=== PATIENT | male | born 1935 | race Caucasian/White ===

== ENCOUNTER 2016-11-25 08:13 | Day surgery (SDC) | payer MEDICARE ==
[~2016-11-25 08:13] MED LIST: CEFAZOLIN 1 GM/D5W RTU 1 GM/50 ML RTUPB IV PRN; CEFAZOLIN SODIUM 1 GM in DEXTROSE 5%-WATER 50 ML IV PRN; LIDOCAINE 1%/EPINEPHRINE INJ 20 ML VIAL ONE; SODIUM BICARBONATE 8.4% INJ 50 MEQ/50 ML DISP.SYRIN ONE
[2016-11-25] MEDS ORDERED: DEXMEDETOMIDINE INJ 80 MCG/20 ML VIAL IV ONE (10:02)
[2016-11-25] MEDS ORDERED: MIDAZOLAM 2 MG/2 ML INJ ONE (10:02)
[2016-11-25] MEDS ORDERED: FENTANYL CITRATE INJ/PF 100 MCG/2 ML AMPUL ONE (10:02)
[2016-11-25] MEDS ORDERED: PROPOFOL INJ 200 MG/20 ML VIAL IV ONE (10:02)
[2016-11-25] MEDS ORDERED: POVIDONE-IODINE 5% OPH PREP SOLN 30 ML ONE (10:12)
[2016-11-25] MEDS ORDERED: DIPHENHYDRAMINE HCL 50 MG/ML VIAL IV PRN (11:17)
[2016-11-25] MEDS ORDERED: ONDANSETRON HCL INJ/PF 4 MG/2 ML SDV IV PRN (11:17)
[2016-11-25] MEDS ORDERED: FENTANYL CITRATE INJ/PF 100 MCG/2 ML AMPUL IV PRN ×2 (11:17)
[2016-11-25] MEDS ORDERED: PROMETHAZINE HCL INJ 25 MG/1 ML VIAL IV PRN (11:17)
--- NOTE | 2016-11-25 13:29 | Operative Report ---
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 re-resection of 9:00 margin and sent for permanent as per Dr. Langley. Reconstruction with a split thickness skin graft taking from the right clavicular area with a bolus tie-over dressing. SURGEON: SUNG HERNANDEZ ANESTHESIA: LMAC TISSUE REMOVED OR ALTERED: Basal cell carcinoma and squamous cell carcinoma COMPLICATIONS: None ESTIMATED BLOOD LOSS: minimal PROCEDURE: The patient was brought into the operating room. The patient was laid on the operating room table in a supine position. The patient was prepped and draped in a sterile and aseptic fashion. After a timeout we then went ahead and marked the area on the right helix of the ear to be resected. The 12:00 margin apex of the ear. The 3:00 margin the tragus. The 6:00 margin and lobule. The 9:00 margin the posterior ear. Then went ahead and anesthetize the area with 1% lidocaine with epinephrine. Then went ahead and excise the area. Stitch was placed at 12:00 and it was sent for frozen section. Frozen section results came back that the deep and lateral margins were clear. We irrigated the wound with Betadine sterile water to lyse any remaining cancer cells. We then went ahead and decided that because of the size of the defect we will proceed with a skin graft. Decided to harvest the graft from the right clavicular area. We then went ahead and harvest the split thickness graft. We closed the area with 4-0 Vicryl sutures and the skin was then closed with 3- 0 PDSwith knots being tied on the outside and a support stitch in the center. At the end of the case tincture of benzoin and Steri-Strips were applied with a light pressure dressing. Graft was then defatted to the appropriate size and placed into the area of defect. It was then sutured into place with 5-0 Prolene sutures leaving one end long. After all the sutures were placed we then went ahead and applied Xeroform. Then went ahead and created a bolus dressing and tied each suture 180 from each other. Then tied the sutures again to each other. Bacitracin was applied. 2 x 2's were applied and tincture benzoin and the dressing was taped into place. At the end of the case the patient was doing well and brought to the PAR for recovery. This dictation was performed using [employer] naturally speaking. If there are any inconsistencies please contact the dictating surgeon. Subjective: No complaints Objective: Vital signs stable afebrile No bleeding Dressing intact Assessment and plan: Doing well. Elevate the operative site. Resume medications. Take antibiotics for 1 day Follow-up Full instructions were given to the patient and family and they understand Portions of this note may be dictated using [employer] voice recognition software. Occasional variations and spelling and vocabulary could be possible and are unintentional. Additionally, there is a chance that some errors may not be caught or corrected. Please notify the offer of any discrepancies noted or if any statements are unclear.
--- NOTE | 2016-11-25 13:32 | PDOC DISCHARGE SUMMARY ---
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 Leave the steri-strip tapes on for 5 days, then removal. Then cleaning wound with peroxide and apply Neosporin/bacitracin 3 times per day. Antibiotics for 1 day, then discontinue. Elevate operative area to decrease swelling. Do not strain, or lift heavy objects. Call for excessive bleeding, increased temperature of 101, uncontrolled pain, or excessive nausea or vomiting. You may reach Dr. Romero through his office at [phone]. In the event of an emergency after hours, then contact Dr. Romero through [facility]. Return to the office for a postop check on . The time will be scheduled by the nursing staff of [facility] prior to discharge. Please give the patient a copy of their labs and EKG so they can bring this to their PMD. Thank you Portions of this note may be dictated using [employer] voice recognition software. Occasional variations and spelling and vocabulary could be possible and are unintentional. Additionally, there is a chance that some errors may not be caught or corrected. Please notify the offer of any discrepancies noted or if any statements are unclear. Discharge Diet: As Tolerated Discharge Activity: Activity As Tolerated
[2016-11-25] MEDS ORDERED: ONDANSETRON HCL INJ/PF 4 MG/2 ML SDV ONE (14:44)
[2016-11-25] MEDS ORDERED: DEXAMETHASONE SOD PHOSPHATE INJ 4 MG/1 ML VIAL ONE (14:44)
[2016-11-25 18:27] VITALS: BP 125/65
== END 2016-11-25 15:42 | disposition home or self-care (01) ==
LOC: OROUT 08:13
PROVIDERS: ATTEND Plastic Surgery
PROC: 0HR2X74 Replacement of Right Ear Skin with Autologous Tissue Substitute, Partial Thickness, External Approach (ICD-10-PCS; principal; 2016-11-25 10:30)
DX: C44.212 Basal cell carcinoma of skin of right ear and external auricular canal (principal); C44.222 Squamous cell carcinoma of skin of right ear and external auricular canal; Z79.82 Long term (current) use of aspirin; Z79.899 Other long term (current) drug therapy
CPT/HCPCS: 88305 ×2; 88331 ×2; 11440; 15120; J2250; J0690; J1100; J3010; J3490 ×4; J2405; J2704; 300